=== PATIENT | female | born 1985 ===

== ENCOUNTER 2020-09-04 16:10 | Inpatient (IN) | payer OTHER ==
[2020-09-04] MEDS ORDERED: AMPICILLIN/NS 2 GM/100 ML 2 GM/100 ML BAG IV ONE ×2 (21:38→21:40)
[2020-09-04] MEDS ORDERED: LACTATED RINGERS 1,000 ML ONE (21:40)
[2020-09-04] MEDS ORDERED: OXYTOCIN DRIP 30,000 MILLIUNITS/500 ML BAG IV ONE (21:40)
[2020-09-04] MEDS ORDERED: ACETAMINOPHEN 325 MG TAB PO PRN (21:43)
[2020-09-04] MEDS ORDERED: fentaNYL 100 MCG/2 ML INJ IV PRN (21:43)
[2020-09-04] MEDS ORDERED: LIDOCAINE (2%) 20 MG/1 ML VIAL 20 ML MDV INFILTRATI ONE (21:43)
[2020-09-04] MEDS ORDERED: ePHEDrine SULFATE 50 MG/1 ML INJ IV PRN (21:43)
[2020-09-04] MEDS ORDERED: BUTORPHANOL 2 MG/1 ML INJ IV PRN (21:43)
[2020-09-04] MEDS ORDERED: TERBUTALINE 1 MG/1 ML INJ SUB-Q PRN (21:43)
[2020-09-04] MEDS ORDERED: MINERAL OIL 30 ML ORAL LIQD PO PRN (21:43)
[2020-09-04] MEDS ORDERED: LACTATED RINGERS 1,000 ML IV SCH ×2 (21:45)
[2020-09-04] MEDS ORDERED: OXYTOCIN DRIP 30 UNITS/500 ML BAG IV SCH ×3 (22:00)
[2020-09-04 22:02] LABS: Hematocrit 33.2 % (30.3-42.9); Hemoglobin 11.6 gm/dl (10.1-14.3); Mean Corpuscular HGB Conc 35 % (30-34); Mean Corpuscular Volume 92 fl (79-97); Platelet Count 246 K/mm3 (140-440); Red Blood Count 3.63 M/mm3 (3.65-5.03); Red Cell Distribution Width 13.5 % (13.2-15.2)
--- NOTE | 2020-09-04 22:32 | History and Physical Report ---
History of Present Illness Date of examination: 09/04/20 Past History - Obstetrical History : 1 Medications and Allergies Allergies Allergy/AdvReac Type Severity Reaction Status Date / Time No Known Allergies Allergy Verified 09/04/20 21:41 Active Meds: Active Medications Acetaminophen (Acetaminophen 325 Mg Tab) 650 mg PO Q4H PRN PRN Reason: Pain, Mild (1-3) Butorphanol Tartrate (Butorphanol 2 Mg/1 Ml Inj) 1 mg IV Q2H PRN PRN Reason: Pain, Moderate(4-6) LABOR PAIN Ephedrine Sulfate (Ephedrine Sulfate 50 Mg/1 Ml Inj) 10 mg IV Q2M PRN PRN Reason: Hypotension Fentanyl (Fentanyl 100 Mcg/2 Ml Inj) 100 mcg IV Q2H PRN PRN Reason: Pain,Severe (7-10) LABOR PAIN Ampicillin Sodium (Ampicillin/Ns 2 Gm/100 Ml) 2 gm in 100 mls @ 100 mls/hr IV ONCE ONE; Protocol Stop: 09/04/20 22:37 Last Admin: 09/04/20 21:50 Dose: 100 mls/hr Documented by: Oxytocin/Sodium Chloride (Pitocin/Ns 30 Unit/500ml) 30 units in 500 mls @ 2 mls/hr IV TITR LEONARDO; Protocol Last Admin: 09/04/20 22:15 Dose: 2 ml/hr, 2 mls/hr Documented by: Lactated Ringer's (Lactated Ringers) 1,000 mls @ 125 mls/hr IV DIRECT LEONARDO Oxytocin/Sodium Chloride (Pitocin/Ns 30 Unit/500ml) 30 units in 500 mls @ 40 mls/hr IV TITR LEONARDO; Protocol Ampicillin Sodium (Ampicillin/Ns 1 Gm/50 Ml) 1 gm in 50 mls @ 100 mls/hr IV Q4H LEONARDO; Protocol Mineral Oil (Mineral Oil 30 Ml Oral Liqd) 30 ml PO QHS PRN PRN Reason: Constipation Terbutaline Sulfate (Terbutaline 1 Mg/1 Ml Inj) 0.25 mg SUB-Q ONCE PRN PRN Reason: Hyperstimulation/Hypertonicity - Vital Signs Vital signs: Vital Signs Temp Pulse Resp BP 98.1 F 75 18 122/76 09/04/20 16:37 09/04/20 16:37 09/04/20 16:37 09/04/20 16:37 Temp Pulse Resp BP Pulse Ox 98.5 F 81 16 132/84 99 09/04/20 20:10 09/04/20 22:29 09/04/20 20:10 09/04/20 22:29 09/04/20 22:29 Results Result Diagrams: 09/04/20 21:50 Abnormal lab results 09/04/20 Range/Units 21:50 RBC 3.63 L (3.65-5.03) M/mm3 MCHC 35 H (30-34) % All other labs normal.
--- NOTE | 2020-09-04 22:34 | Progress Note ---
Subjective - Subjective Date of service: 09/04/20 Interval history: AROm clear fluid cervix 5cm/100%/-2 [place]: irregular continue oxytocin per protocol and GBS prophylaxis as needed Maternal/ well being reassuring overall Anel Owens MD Objective - Vital Signs Vital Signs: Vital Signs - 12hr 09/04/20 09/04/20 09/04/20 16:37 16:49 16:54 Temperature 98.1 F Pulse Rate 75 78 81 Respiratory 18 Rate Blood Pressure 122/76 Blood Pressure [Right] O2 Sat by Pulse 98 98 Oximetry 09/04/20 09/04/20 09/04/20 16:59 17:04 17:09 Temperature Pulse Rate 87 68 72 Respiratory Rate Blood Pressure Blood Pressure [Right] O2 Sat by Pulse 99 99 98 Oximetry 09/04/20 09/04/20 09/04/20 17:14 17:19 17:24 Temperature Pulse Rate 84 72 82 Respiratory Rate Blood Pressure Blood Pressure [Right] O2 Sat by Pulse 98 98 99 Oximetry 09/04/20 09/04/20 09/04/20 17:29 17:34 17:39 Temperature Pulse Rate 74 79 66 Respiratory Rate Blood Pressure Blood Pressure [Right] O2 Sat by Pulse 99 99 98 Oximetry 09/04/20 09/04/20 09/04/20 17:44 17:49 17:54 Temperature Pulse Rate 82 76 79 Respiratory Rate Blood Pressure Blood Pressure [Right] O2 Sat by Pulse 97 98 98 Oximetry 09/04/20 09/04/20 09/04/20 17:59 18:04 18:09 Temperature Pulse Rate 97 H 86 71 Respiratory Rate Blood Pressure Blood Pressure [Right] O2 Sat by Pulse 98 98 98 Oximetry 09/04/20 09/04/20 09/04/20 18:14 18:19 18:24 Temperature Pulse Rate 77 82 73 Respiratory Rate Blood Pressure Blood Pressure [Right] O2 Sat by Pulse 98 98 98 Oximetry 09/04/20 09/04/20 09/04/20 18:29 18:34 18:39 Temperature Pulse Rate 83 85 90 Respiratory Rate Blood Pressure Blood Pressure [Right] O2 Sat by Pulse 98 99 98 Oximetry 09/04/20 09/04/20 09/04/20 18:44 18:49 20:10 Temperature 98.5 F Pulse Rate 89 73 81 Respiratory 16 Rate Blood Pressure Blood Pressure 127/75 [Right] O2 Sat by Pulse 98 98 98 Oximetry 09/04/20 09/04/20 09/04/20 20:11 20:14 20:19 Temperature Pulse Rate 82 84 89 Respiratory Rate Blood Pressure 127/75 Blood Pressure [Right] O2 Sat by Pulse 98 99 Oximetry 09/04/20 09/04/20 09/04/20 20:24 20:29 20:34 Temperature Pulse Rate 79 74 87 Respiratory Rate Blood Pressure Blood Pressure [Right] O2 Sat by Pulse 100 99 100 Oximetry 09/04/20 09/04/20 09/04/20 20:39 20:44 20:49 Temperature Pulse Rate 74 79 84 Respiratory Rate Blood Pressure Blood Pressure [Right] O2 Sat by Pulse 99 99 100 Oximetry 09/04/20 09/04/20 09/04/20 20:54 20:59 21:04 Temperature Pulse Rate 90 80 83 Respiratory Rate Blood Pressure Blood Pressure [Right] O2 Sat by Pulse 100 100 100 Oximetry 09/04/20 09/04/20 09/04/20 21:09 21:14 21:19 Temperature Pulse Rate 78 80 69 Respiratory Rate Blood Pressure Blood Pressure [Right] O2 Sat by Pulse 99 100 99 Oximetry 09/04/20 09/04/20 09/04/20 21:24 21:29 21:34 Temperature Pulse Rate 63 64 64 Respiratory Rate Blood Pressure Blood Pressure [Right] O2 Sat by Pulse 99 99 99 Oximetry 09/04/20 09/04/20 09/04/20 21:39 21:44 21:49 Temperature Pulse Rate 71 72 69 Respiratory Rate Blood Pressure Blood Pressure [Right] O2 Sat by Pulse 100 100 100 Oximetry 09/04/20 09/04/20 09/04/20 21:54 21:59 22:04 Temperature Pulse Rate 80 71 78 Respiratory Rate Blood Pressure Blood Pressure [Right] O2 Sat by Pulse 99 100 100 Oximetry 09/04/20 09/04/20 09/04/20 22:09 22:14 22:19 Temperature Pulse Rate 67 75 87 Respiratory Rate Blood Pressure Blood Pressure [Right] O2 Sat by Pulse 100 100 100 Oximetry 09/04/20 09/04/20 22:22 22:29 Temperature Pulse Rate 81 Respiratory Rate Blood Pressure 132/84 Blood Pressure [Right] O2 Sat by Pulse 93 99 Oximetry - Labs Labs: Abnormal Labs 09/04/20 21:50 RBC 3.63 L MCHC 35 H Laboratory Results - last 24 hr 09/04/20 21:50 WBC 6.8 RBC 3.63 L Hgb 11.6 Hct 33.2 MCV 92 MCH 32 MCHC 35 H RDW 13.5 Plt Count 246
[2020-09-05] MEDS: AMPICILLIN/NS 1 GM/50 ML 1 GM/50 ML BAG IV SCH ×3 (02:35→16:15)
--- NOTE | 2020-09-05 09:14 | History and Physical Report ---
History of Present Illness Date of examination: 09/05/20 Date of admission: 09/04/20 21:39 Chief complaint: Contractions. History of present illness: 35 year old presents to L&D with contractions. Patient received care at [facility]. records are available. LMP 11/11/2019 uncertain. EDC 08/31/20. significant for the following: AMA, GBS positive, anemia, ASCUS/+ HPV pap smear. labs are as follows: A+, antibody screen negative, rubella immune, hepatitis B surface antigen negative, RPR nonreactive, HIV negative, gonorrhea negative, chlamydia negative, GBS positive, 1 hour sugar test 112, cystic fibrosis negative, fragile X negative. Past History Past Medical History: other (anxiety, ASCUS pap smear, HPV +) Past Surgical History: no surgical history [employer] History: abnormal PAP smear. denies: chlamydia, gonorrhea, hepatitis B, hepatitis C, herpes, HIV, syphilis, trichomonas Family/Genetic History: diabetes, hypertension Social history: lives with family, full code. denies: smoking, alcohol abuse, prescription drug abuse, IV drug use - Obstetrical History Expected Date of Delivery: 08/31/20 Actual Gestation: 40 Week(s) 5 Day(s) : 1 Para: 0 Hx # Term Pregnancies: 0 Number of Pregnancies: 0 Spontaneous Abortions: 0 Induced : 0 Number of Living Children: 0 Medications and Allergies Allergies Allergy/AdvReac Type Severity Reaction Status Date / Time No Known Allergies Allergy Verified 09/04/20 21:41 Active Meds: Active Medications Acetaminophen (Acetaminophen 325 Mg Tab) 650 mg PO Q4H PRN PRN Reason: Pain, Mild (1-3) Butorphanol Tartrate (Butorphanol 2 Mg/1 Ml Inj) 1 mg IV Q2H PRN PRN Reason: Pain, Moderate(4-6) LABOR PAIN Ephedrine Sulfate (Ephedrine Sulfate 50 Mg/1 Ml Inj) 10 mg IV Q2M PRN PRN Reason: Hypotension Fentanyl (Fentanyl 100 Mcg/2 Ml Inj) 100 mcg IV Q2H PRN PRN Reason: Pain,Severe (7-10) LABOR PAIN Oxytocin/Sodium Chloride (Pitocin/Ns 30 Unit/500ml) 30 units in 500 mls @ 2 mls/hr IV TITR LEONARDO; Protocol Last Titration: 09/05/20 05:18 Dose: 12 ml/hr, 12 mls/hr Documented by: Lactated Ringer's (Lactated Ringers) 1,000 mls @ 125 mls/hr IV DIRECT LEONARDO Oxytocin/Sodium Chloride (Pitocin/Ns 30 Unit/500ml) 30 units in 500 mls @ 40 mls/hr IV TITR LEONARDO; Protocol Ampicillin Sodium (Ampicillin/Ns 1 Gm/50 Ml) 1 gm in 50 mls @ 100 mls/hr IV Q4H LEONARDO; Protocol Last Admin: 09/05/20 06:50 Dose: 100 mls/hr Documented by: Mineral Oil (Mineral Oil 30 Ml Oral Liqd) 30 ml PO QHS PRN PRN Reason: Constipation Terbutaline Sulfate (Terbutaline 1 Mg/1 Ml Inj) 0.25 mg SUB-Q ONCE PRN PRN Reason: Hyperstimulation/Hypertonicity Review of Systems All systems: negative (contractions) - Vital Signs Vital signs: Vital Signs Temp Pulse Resp BP 98.1 F 75 18 122/76 09/04/20 16:37 09/04/20 16:37 09/04/20 16:37 09/04/20 16:37 Temp Pulse Resp BP Pulse Ox 98 F 98 H 20 117/95 100 09/05/20 08:20 09/05/20 09:07 09/05/20 08:20 09/05/20 09:01 09/05/20 09:07 - Physical Exam Abdomen: Positive: normal appearance, soft. Negative: distention, tenderness, guarding, rigidity Genitourinary (Female): Positive: normal external genitalia, normal perenium. Negative: perineal/vulvar lesions (no lesions noted on careful exam under bright light) Vagina: Positive: normal moisture Uterus: Positive: enlarged. Negative: tender Anus/Rectum: Positive: normal perianal skin Extremities: Positive: normal. Negative: tenderness, edema - Obstetrical FHR: category 1 Uterine Contraction Monitor Mode: External Cervical Dilatation: 8 Cervical Effacement Percentage: 80 station: -1 to 0 Uterine Contraction Pattern: Regular Uterine Contraction Intensity: Moderate Results Result Diagrams: 09/04/20 21:50 Abnormal lab results 09/04/20 Range/Units 21:50 RBC 3.63 L (3.65-5.03) M/mm3 MCHC 35 H (30-34) % All other labs normal. Assessment and Plan A: at 40 weeks, 5 days gestation. Active labor. GBS positive. AMA. P: Admit. Continuous EFM. GBS prophylaxis. Anticipate .
[2020-09-05 13:43] LABS: Uric Acid 7.3 mg/dL (3.5-7.6)
[2020-09-05 13:44] LABS: Alanine Aminotransferase 20 units/L (7-56); Albumin 2.9 g/dL (3.9-5); BUN/Creatinine Ratio 19; Blood Urea Nitrogen 13 mg/dL (7-17); Calcium 8.1 mg/dL (8.4-10.2); Hemolysis Index 0
[2020-09-05] MEDS ORDERED: LIDOCAINE (2%) 20 MG/1 ML VIAL 20 ML MDV INFILTRATI ONE (17:19)
[2020-09-05] MEDS ORDERED: METHYLERGONOVINE MALEATE 0.2 MG/ML VIAL IM ONE ×2 (17:20→17:22)
--- NOTE | 2020-09-05 18:47 | Procedure Note ---
OB Delivery Note - Delivery Date of Delivery: 09/05/20 Surgeon: AAYUSH HALE Estimated blood loss: other (400ml) - Vaginal Delivery position: OA Intrapartum events: meconium, prolonged 2nd stage>2.5hr, mult.variable deceleratio Delivery induction: none Delivery augmentation: rupture of membranes, pitocin Delivery monitor: external FHT, external uterine Route of delivery: vacuum extraction Indicators for instrumentation: maternal exhaustion Delivery placenta: spontaneous Delivery cord: 3 umbilical vessels Episiotomy: none Delivery laceration: 3rd degree, other (left lateral vaginal sulcus) Delivery repair: vicryl Anesthesia: local Delivery comments: Patient pushed to deliver a viable female(weight 2896gms, APGAR8/9) over an intact perineum via vacuum-assisted vaginal delivery. Vacuum applied second to repetitive variable decelerations with poor maternal pushing effort. Vacuum applied 1 with no excess traction to a maximum force of 550 mmHg. Position HORTENSIA, no nuchal cord. Spontaneous cry at delivery. Delivery of the anterior shoulder atraumatic, remainder of delivery uncomplicated. Cord clamped cut and baby handed to waiting [facility] team. Spontaneous delivery of an intact placenta with three-vessel cord second to excessive vaginal bleeding. Third degree perineal laceration and left lateral vaginal sulcus laceration repaired with 2-0 Vicryl in the usual fashion. The rectum and urethra were confirmed patent at the completion of the procedure. Firm fundus after 1 dose of Methergine 0.2 mg given IM. EBL 400 mL.All sponge needle and instrument counts correct x2. Mom and baby stable to . rx percocet on chart: pt pratima have significant perineal pain related to repair and will require narcotics. Anel Hale MD
[2020-09-05] MEDS ORDERED: WITCH HAZEL/ GLYCERIN PAD TP PRN (22:54)
[2020-09-05] MEDS ORDERED: LANOLIN/ZINC/DIMETHICONE (LANSINOH) 7 GM TP PRN (22:54)
[2020-09-05] MEDS ORDERED: oxyCODONE /ACETAMINOPHEN 5-325MG TAB PO PRN (23:23)
[2020-09-06] MEDS: IBUPROFEN 600 MG TAB PO SCH ×4 (00:09→23:46)
[2020-09-06 03:25] LABS: Bacteria,Urine 1+ /HPF (Negative); Bilirubin,Urine NEG (Negative); Blood,Urine LG (Negative); Color,Urine Yellow (Yellow); Mucus,Urine FEW /HPF; Urobilinogen,Urine < 2.0 mg/dL (<2.0)
[2020-09-06 03:26] LABS: RBC,Urine > 182.0 /HPF (0.0-6.0)
[2020-09-06] MEDS ORDERED: cefTRIAXone/NS 1 GM/50 ML 1 GM/50 ML BAG IV SCH (05:00)
[2020-09-06] MEDS ORDERED: SODIUM CHLORIDE 0.9% 500 ML 500 ML IV ONE (05:28)
[2020-09-06] MEDS ORDERED: TETANUS,DIPH,PERTUSS(ACELL) VACCINE 0.5 ML SYRINGE IM ONE (10:00)
[2020-09-06 11:30] LABS: Hematocrit 21.9 % (30.3-42.9); Hemoglobin 7.4 gm/dl (10.1-14.3)
[2020-09-06] MEDS ORDERED: IRON DEXTRAN COMPLEX 100 MG/2 ML INJ IM SCH (12:00)
--- NOTE | 2020-09-06 12:39 | Progress Note ---
Assessment and Plan A: PP Day #1 Asymptomatic Severe Anemia Decreased Urinary Output Right Leg Pain P: Follow Routine Orders Infed 100mg IM x 1 dose Ferrous Sulfate 325mg PO BID Increase PO water Intake Bilateral Doppler Studies Consult Dr. Owens Subjective - Subjective Date of service: 09/06/20 Patient reports: appetite normal, pain well controlled, flatus, ambulating normally, other (Decreased urinary output. Reported right leg pain in the ankle area this morning) [place]: doing well, bottle feeding Objective - Vital Signs Latest vital signs: Vital Signs Temp Pulse Resp BP BP Pulse Ox 09/06/20 08:10 98.0 F 83 18 96/56 99 09/06/20 05:52 18 09/06/20 04:36 98.3 F 98 H 20 97/57 98 09/05/20 21:30 16 09/05/20 20:45 99.2 F 121 H 16 118/74 97 09/05/20 19:55 124 H 97 09/05/20 19:50 132 H 98 09/05/20 19:48 125 H 124/64 09/05/20 19:45 129 H 98 09/05/20 19:40 127 H 99 09/05/20 19:37 98.5 F 16 09/05/20 19:35 121 H 99 09/05/20 19:33 116 H 113/62 09/05/20 19:30 121 H 99 09/05/20 19:25 123 H 100 09/05/20 19:20 129 H 100 09/05/20 19:18 117 H 108/61 09/05/20 19:15 115 H 99 09/05/20 19:10 124 H 99 09/05/20 19:05 108 H 99 09/05/20 19:03 114 H 103/61 09/05/20 19:00 128 H 99 09/05/20 18:55 117 H 99 09/05/20 18:50 113 H 99 09/05/20 18:48 111 H 112/64 09/05/20 18:45 106 H 98 09/05/20 18:40 110 H 98 09/05/20 18:35 115 H 99 09/05/20 18:34 116 H 115/63 09/05/20 18:30 112 H 99 09/05/20 18:25 112 H 100 09/05/20 18:20 112 H 100 09/05/20 18:18 122 H 121/69 09/05/20 18:15 124 H 99 09/05/20 18:10 126 H 98 09/05/20 18:05 129 H 97 09/05/20 18:03 126 H 111/68 91 09/05/20 18:00 130 H 97 09/05/20 17:55 127 H 97 09/05/20 17:50 113 H 99 09/05/20 17:48 123 H 118/73 09/05/20 17:45 125 H 97 09/05/20 17:40 134 H 95 09/05/20 17:35 138 H 93 09/05/20 17:30 125 H 98 09/05/20 17:27 83 L 09/05/20 17:25 138 H 97 09/05/20 17:21 123 H 75 L 09/05/20 17:20 98.2 F 125 H 98 09/05/20 17:16 69 89 09/05/20 17:15 135 H 100 09/05/20 17:10 122 H 100 09/05/20 17:05 116 H 100 09/05/20 17:00 109 H 98 09/05/20 16:55 107 H 96 09/05/20 16:50 95 H 97 09/05/20 16:45 104 H 97 09/05/20 16:40 100 H 99 09/05/20 16:35 92 H 97 09/05/20 16:31 81 91 09/05/20 16:30 91 H 99 09/05/20 16:25 92 H 99 09/05/20 16:20 98 H 99 09/05/20 16:15 110 H 100 09/05/20 16:10 110 H 95 09/05/20 16:09 105 H 94 09/05/20 16:05 45 L 96 09/05/20 16:00 132 H 97 09/05/20 15:55 96 H 100 09/05/20 15:50 106 H 98 09/05/20 15:45 108 H 100 09/05/20 15:40 96 H 100 09/05/20 15:35 100 H 100 09/05/20 15:30 91 H 100 09/05/20 15:25 96 H 100 09/05/20 15:20 95 H 100 09/05/20 15:15 95 H 99 09/05/20 15:10 103 H 99 09/05/20 15:05 111 H 99 09/05/20 15:01 64 84 09/05/20 15:00 111 H 99 09/05/20 14:55 116 H 98 09/05/20 14:50 134 H 99 09/05/20 14:45 107 H 90 09/05/20 14:40 121 H 99 09/05/20 14:35 88 87 09/05/20 14:34 111 H 96 09/05/20 14:29 117 H 100 09/05/20 14:24 100 H 95 09/05/20 14:22 109 H 87 09/05/20 14:19 112 H 97 09/05/20 14:16 87 83 L 09/05/20 14:14 96 H 91 09/05/20 14:11 99 H 94 09/05/20 14:07 103 H 100 09/05/20 14:05 96 H 92 09/05/20 14:02 99 H 100 09/05/20 14:00 98.3 F 09/05/20 13:57 103 H 98 09/05/20 13:52 80 99 09/05/20 13:51 85 94 09/05/20 13:47 97 H 100 09/05/20 13:46 106 H 90 09/05/20 13:42 95 H 100 09/05/20 13:37 97 H 98 09/05/20 13:32 93 H 99 09/05/20 13:30 85 119/68 09/05/20 13:27 93 H 100 09/05/20 13:22 87 100 09/05/20 13:17 74 100 09/05/20 13:13 95 H 86 09/05/20 13:12 98 H 97 09/05/20 13:07 107 H 96 09/05/20 13:04 75 86 09/05/20 13:02 93 H 99 09/05/20 13:00 96 H 141/65 09/05/20 12:58 77 82 L 09/05/20 12:57 85 98 09/05/20 12:52 94 H 98 09/05/20 12:49 96 H 94 09/05/20 12:47 97 H 100 09/05/20 12:43 92 H 93 09/05/20 12:42 88 95 09/05/20 12:38 93 H 91 09/05/20 12:37 93 H 91 Intake and Output 09/05/20 09/06/20 09/06/20 22:59 06:59 14:59 Intake Total 48 Output Total 300 Balance 48 -300 Intake: IV 48 PITOCin/NS 30 UNIT/500ML 48 30 units In 500 ml @ 2 mls/hr IV TITR LEONARDO Rx#: [id number] Output: Urine 300 Void 300 Other: Total, Output Amount 100 # Voids Void 1 Estimated Blood Loss 400 - Exam Breasts: Present: normal Cardiovascular: Present: Regular rate Lungs: Present: Clear to auscultation, Normal air movement Abdomen: Present: normal appearance, soft, normal bowel sounds Uterus: Present: normal, firm, fundal height below umbilicus Extremities: Present: normal - Labs Labs: Abnormal lab results 09/05/20 09/05/20 09/06/20 Range/Units 12:51 12:51 11:11 Hgb 7.4 L D (10.1-14.3) gm/dl Hct 21.9 L D (30.3-42.9) % Sodium 135 L (137-145) mmol/L Carbon Dioxide 17 L (22-30) mmol/L Glucose 141 H (65-100) mg/dL Calcium 8.1 L (8.4-10.2) mg/dL Alkaline Phosphatase 228 H (35-129) units/L Lactate Dehydrogenase 287 H (91-180) units/L Total Protein 5.8 L (6.3-8.2) g/dL Albumin 2.9 L (3.9-5) g/dL Urine WBC (Auto) (0.0-6.0) /HPF 09/06/20 Range/Units Unknown Hgb (10.1-14.3) gm/dl Hct (30.3-42.9) % Sodium (137-145) mmol/L Carbon Dioxide (22-30) mmol/L Glucose (65-100) mg/dL Calcium (8.4-10.2) mg/dL Alkaline Phosphatase (35-129) units/L Lactate Dehydrogenase (91-180) units/L Total Protein (6.3-8.2) g/dL Albumin (3.9-5) g/dL Urine WBC (Auto) 151.0 H (0.0-6.0) /HPF
[2020-09-06] MEDS: DOCUSATE SODIUM 100 MG CAP PO SCH ×2 (12:43→23:46)
--- NOTE | 2020-09-06 14:30 | Vascular Lab Report ---
DUPLEX DOPPLER LOWER EXTREMITY VEINS, BILATERAL INDICATION / CLINICAL INFORMATION: swelling and pain in left leg. TECHNIQUE: Duplex doppler imaging was performed through the veins of both lower extremities using venous lavon lottie and other maneuvers. COMPARISON: None available. FINDINGS: Right Common Femoral vein: Negative. Right Femoral vein: Negative. Right Popliteal vein: Negative. Right Calf veins: Negative. Left Common Femoral vein: Negative. Left Femoral vein: Negative. Left Popliteal vein: Negative. Left Calf veins: Negative. Additional findings: None. IMPRESSION: 1. No sonographic evidence for DVT in either lower extremity. Signer Name: Richar Aguilar MD Signed: 09/06/2020 2:26 PM Workstation Name: [id number]
[2020-09-06] MEDS: FERROUS SULFATE 325 MG TAB PO SCH ×2 (17:16→23:46)
[2020-09-07] MEDS: IBUPROFEN 600 MG TAB PO SCH ×4 (05:16→21:49)
--- NOTE | 2020-09-07 09:47 | Progress Note ---
Assessment and Plan A: S/P vaccum assisted del S/P right leg pain Asymptomatic anemia Urine WBC 151.0 P: Continue routine pp care Doppler studies are neg Cont Fe as prescribed Pending urine c&s Encourage extra fluids D/c home with abt based upon results of ua c&s Subjective - Subjective Date of service: 09/07/20 Principal diagnosis: s/p vaccum assisted del Patient reports: appetite normal, voiding normally, pain well controlled, ambulating normally, other (denies c/o leg pain. Doppler studies are neg.) : doing well, bottle feeding Objective - Vital Signs Latest vital signs: Vital Signs Temp Pulse Resp BP BP Pulse Ox 09/07/20 07:45 97.6 F 73 17 103/56 100 09/07/20 01:02 98.2 F 88 18 108/55 97 09/06/20 18:11 98.3 F 86 18 107/61 98 09/06/20 12:33 98.6 F 90 18 103/52 98 Intake and Output 09/06/20 09/07/20 09/07/20 22:59 06:59 14:59 Intake Total 200 240 Output Total 850 Balance -650 240 Intake: Oral 200 Intake, Free Water 240 Output: Urine 850 Void 850 Other: Total, Intake Amount 200 Total, Output Amount 500 # Voids Void 1 2 - Exam Breasts: Present: normal Abdomen: Present: normal appearance, soft, normal bowel sounds Vulva: both: normal Uterus: Present: normal, firm, fundal height below umbilicus Extremities: Present: normal Incision: Present: normal, intact - Labs Labs: Abnormal lab results 09/06/20 Range/Units 11:11 Hgb 7.4 L D (10.1-14.3) gm/dl Hct 21.9 L D (30.3-42.9) %
[2020-09-07] MEDS: FERROUS SULFATE 325 MG TAB PO SCH ×2 (10:32→21:49)
[2020-09-07] MEDS: DOCUSATE SODIUM 100 MG CAP PO SCH ×2 (10:32→21:49)
[2020-09-07 12:02] LABS: Basophils % (Auto) 0.3 % (0.0-1.8); Eosinophils # (Auto) 0.1 K/mm3 (0.0-0.4); Eosinophils % (Auto) 0.7 % (0.0-4.3); Hematocrit 20.8 % (30.3-42.9); Hemoglobin 7.1 gm/dl (10.1-14.3); Lymphocytes # (Auto) 1.7 K/mm3 (1.2-5.4); Lymphocytes % (Auto) 13.9 % (13.4-35.0); Mean Corpuscular HGB Conc 34 % (30-34); Mean Corpuscular Volume 91 fl (79-97); Monocytes # (Auto) 0.6 K/mm3 (0.0-0.8); Monocytes % (Auto) 5.3 % (0.0-7.3); Platelet Count 203 K/mm3 (140-440); Red Blood Count 2.28 M/mm3 (3.65-5.03)
[2020-09-08] MEDS: IBUPROFEN 600 MG TAB PO SCH ×2 (01:30→05:19)
[2020-09-08] MEDS: DOCUSATE SODIUM 100 MG CAP PO SCH (09:39)
[2020-09-08] MEDS: FERROUS SULFATE 325 MG TAB PO SCH (09:39)
--- NOTE | 2020-09-08 12:42 | Progress Note ---
Assessment and Plan A: PP Day #3 Asymptomatic Anemia S/P VAD s/P leg pain P: Follow Routine orders Continue PO FeSO4 D/C Home today RTO in 6 Weeks Subjective - Subjective Date of service: 09/08/20 Principal diagnosis: s/p vaccum assisted del Patient reports: appetite normal, voiding normally, pain well controlled, flatus, bowel movement, ambulating normally : doing well Objective - Vital Signs Latest vital signs: Vital Signs Temp Pulse Resp BP BP Pulse Ox 09/08/20 08:09 98.0 F 76 18 108/60 96 09/08/20 06:13 18 09/08/20 05:19 18 09/08/20 01:42 98.0 F 81 18 103/53 96 09/07/20 22:49 18 09/07/20 22:25 98.6 F 84 18 107/55 99 09/07/20 21:49 18 09/07/20 21:30 99 F 78 18 99/42 09/07/20 16:30 98.0 F 77 18 106/58 98 Intake and Output 09/07/20 09/08/20 09/08/20 22:59 06:59 14:59 Intake Total 300 Balance 300 Intake: Intake, Free Water 300 - Exam Breasts: Present: normal Cardiovascular: Present: Regular rate Lungs: Present: Clear to auscultation, Normal air movement Abdomen: Present: normal appearance, soft, normal bowel sounds Uterus: Present: normal, firm, fundal height below umbilicus Extremities: Present: normal
--- NOTE | 2020-09-08 12:45 | Discharge Summary ---
Providers - Providers Date of Admission: 09/04/20 21:39 Date of discharge: 09/08/20 Attending physician: AAYUSH HALE MD Primary care physician: AAYUSH HALE MD Hospitalization Reason for admission: active labor Delivery: vacuum extraction Episiotomy: none Laceration: 3rd degree Other procedures: other (doppler studies) complications: other (leg pain) Discharge diagnosis: IUP at term delivered baby: female Condition at discharge: Good Disposition: DC-01 TO HOME OR SELFCARE Plan - Discharge Medications Prescriptions: Ibuprofen [Motrin] 600 mg PO Q8H PRN #30 tablet PRN Reason: Pain oxyCODONE /ACETAMINOPHEN [Percocet 5/325] 1 tab PO Q6HR PRN #20 tablet PRN Reason: Pain - Provider Discharge Summary Activity: routine, no sex for 6 weeks, no heavy lifting 4 weeks, no strenuous exercise Diet: routine Additional instructions: [] Smoking cessation referral if applicable(refer to patient education folder for contact #) [] Refer to [facility] Booklet Call your doctor immediately for: * Fever > 100.5 * Heavy vaginal bleeding ( >1 pad per hour) * Severe persistent headache * Shortness of breath * Reddened, hot, painful area to leg or breast * Drainage or odor from incision. * Keep incision clean and dry at all times and follow doctor's instructions regarding bathing/showering - Follow up plan Follow up: AAYUSH HALE MD [Primary Care Provider] - 6 Weeks
[2020-09-08 18:16] VITALS: BP 126/74
== END 2020-09-08 17:15 | disposition home or self-care (01) | DRG 768 ==
LOC: TRG 16:10 → APU 16:12 → LD 21:39 → TRG 21:43 → LD 22:26 → OB 09-05 20:21
PROVIDERS: ADMIT Obstetrics & Gynecology; ATTEND Obstetrics & Gynecology
PROC: 10907ZC Drainage of Amniotic Fluid, Therapeutic from Products of Conception, Via Natural or Artificial Opening (ICD-10-PCS; 2020-09-04)
PROC: 10D07Z6 Extraction of Products of Conception, Vacuum, Via Natural or Artificial Opening (ICD-10-PCS; principal; 2020-09-05)
PROC: 0DQR0ZZ Repair Anal Sphincter, Open Approach (ICD-10-PCS; 2020-09-05)
PROC: 3E0234Z Introduction of Serum, Toxoid and Vaccine into Muscle, Percutaneous Approach (ICD-10-PCS; 2020-09-06)
DX: O77.0 Labor and delivery complicated by meconium in amniotic fluid (principal); Z37.0 Single live birth; O70.20 Third degree perineal laceration during delivery, unspecified; O99.02 Anemia complicating childbirth; O76 Abnormality in fetal heart rate and rhythm complicating labor and delivery; O42.92 Full-term premature rupture of membranes, unspecified as to length of time between rupture and onset of labor; O99.344 Other mental disorders complicating childbirth; F41.9 Anxiety disorder, unspecified; O99.824 Streptococcus B carrier state complicating childbirth; Z20.822 Contact with and (suspected) exposure to COVID-19; Z3A.40 40 weeks gestation of pregnancy; Z82.49 Family history of ischemic heart disease and other diseases of the circulatory system; Z83.3 Family history of diabetes mellitus
CPT/HCPCS: 36415; 59025; 80053; 81001; 83615; 84550; 85014; 85018; 85025; 85027; 86850; 86900; 86901; 87086; 88307; 93970; G0378; J0290; J0696; J2210; J2590; J3010; J7040; J7120; U0003